=== PATIENT | male | born 2000 | race Caucasian/White ===

== ENCOUNTER 2025-02-21 04:27 | Emergency (ER) | payer SELFPAY ==
[~2025-02-21] VITALS: Ht 188 cm; Wt 68.0 kg
[2025-02-21] MEDS ORDERED: IV NS 0.9% 1,000 ML BAG IV ONE (05:00)
[2025-02-21] MEDS ORDERED: LORAZEPAM 1 MG TABLET ONE (05:06)
[2025-02-21] MEDS: LORAZEPAM 1 MG TABLET PO ONE (05:08)
[2025-02-21 05:10] LABS: PLATELET COUNT (AUTO) 272 K/uL (150-450); RED BLOOD CELL COUNT(AUTO) 4.97 MIL/uL (4.5-6.0); RED CELL DISTRIBUTION WIDTH 13.4 % (11.5-15.0); WHITE BLOOD COUNT (AUTO) 4.6 K/uL (4.3-11.0)
[2025-02-21 05:15] LABS: AMPHETAMINE, URINE NEGATIVE (NEGATIVE); BARBITURATE, URINE NEGATIVE (NEGATIVE); BENZODIAZEPINE, URINE NEGATIVE (NEGATIVE); COCCAINE, URINE NEGATIVE (NEGATIVE); OPIATE, URINE NEGATIVE (NEGATIVE)
[2025-02-21 05:16] LABS: CALCIUM, SERUM 8.8 mg/dL (8.5-10.1); CANNABINOID, URINE POSITIVE (NEGATIVE); CREATININE 1.4 mg/dL (0.6-1.3); SODIUM SERUM 135 mmol/L (136-145); UREA NITROGEN, BLOOD 16 mg/dL (7-18)
[2025-02-21 05:23] LABS: ASPARTATE AMINOTRANSFERASE 28 U/L (15-37); TOTAL PROTEIN, SERUM 7.8 g/dL (6.4-8.2)
[2025-02-21] MEDS ORDERED: POTASSIUM CHLORIDE 20 MEQ TAB.PRT.SR PO ONE (05:45)
[2025-02-21] MEDS: POTASSIUM CHLORIDE 20 MEQ TAB.PRT.SR PO ONE (05:49)
[2025-02-21 05:59] VITALS: BP 126/78; TEMP 98; O2SAT 100
== END 2025-02-21 06:00 | disposition home or self-care (01) ==
LOC: ER 04:45
DX: R00.2 Palpitations (principal); R06.02 Shortness of breath; F41.9 Anxiety disorder, unspecified; F17.200 Nicotine dependence, unspecified, uncomplicated; Z79.899 Other long term (current) drug therapy
CPT/HCPCS: 36415; 71045-TC; 80048-TC; 80076-TC; 84484-TC; 85025-TC; G0480